=== PATIENT | female | born 1955 | race American Indian/Alaskan Native ===

== ENCOUNTER 2018-07-29 07:24 | Outpatient (CLI) | payer BC | END 2018-07-29 07:25 | disposition home or self-care (01) | LOC: CARDIO 07:24 ==

== ENCOUNTER 2018-09-10 18:59 | Emergency (ER) | payer BC ==
[2018-09-10 19:00] VITALS: BMI 29.9
[2018-09-10 19:13] VITALS: TEMP 98.9
--- NOTE | 2018-09-10 19:31 | ED PDOC ---
Arrival/HPI - General Chief Complaint: ENT Problem Time Seen by Provider: 09/10/18 19:15 Historian: Patient - History of Present Illness Narrative History of Present Illness (Text): 09/10/18 19:30 62 yo F w/ PMH of HTN and DM c/o swelling to the L side of her cheek by her L ear. States that she also has a cracked tooth to the L upper 3rd molar, she saw her pmd today and was advised to go to the ER for possible dental abscess. Denies any fever, chills, headache, URI, sore throat, ear pain, rash, N/V. Has no other complaints. PMD [place] Past Medical History - Infectious Disease Hx of Infectious Diseases: None - Reproductive Menopause: Yes - Cardiac Hx Hypertension: Yes Hx Peripheral Vascular Disease: Yes - Neurological Hx Paralysis: No - Hematological/Oncological Hx Blood Transfusions: No Hx Blood Transfusion Reaction: No - Musculoskeletal/Rheumatological Hx Musculoskeletal Disorders: Yes - Psychiatric Hx Emotional Abuse: No Hx Physical Abuse: No Hx Substance Use: No - Past Surgical History Past Surgical History: Non-Contributing - Surgical History Hx Cardiac Catheterization: Yes - Anesthesia Hx Anesthesia Reactions: Yes ("VERY COLD WHEN WAKING UP") Hx Malignant Hyperthermia: No - Suicidal Assessment Feels Threatened In Home Enviroment: No Family/Social History Family/Social History: No Known Family HX Smoking Status: Unknown If Ever Smoked Hx Alcohol Use: No Hx Substance Use: No Allergies/Home Meds Allergies/Adverse Reactions: Allergies seasonal Allergy (Uncoded 09/10/18 19:14) CONGESTION Home Medications: Home Meds Medication Instructions Recorded Confirmed Insulin Lispro Mix 75/25 [HumaLOG 22 units SC ACB 12/30/13 07/29/18 Mix 75/25] Insulin Lispro Mix 75/25 [HumaLOG 26 units SC ACD 12/30/13 07/29/18 Mix 75/25] NIFEdipine ER [Procardia XL] 40 mg PO QAM 12/30/13 07/29/18 Quinapril [Accupril] 40 mg PO QAM 12/30/13 07/29/18 Biotin 1,000 mcg PO DAILY 07/24/15 07/29/18 Pantoprazole Sodium [Protonix] 40 mg PO QAM 07/24/15 07/29/18 Empagliflozin [Jardiance] 25 mg PO DAILY 07/29/18 07/29/18 Fluticasone Propionate 1 gm TP BID PRN 07/29/18 07/29/18 Review of Systems - Review of Systems Constitutional: absent: Fatigue, Fevers Respiratory: absent: SOB, Cough Cardiovascular: absent: Chest Pain, Palpitations Gastrointestinal: absent: Nausea, Vomiting Skin: absent: Rash, Skin Lesions Neurological: absent: Headache, Dizziness Physical Exam Vital Signs Temp Pulse Resp BP Pulse Ox 09/10/18 19:08 98.9 F 58 L 18 163/117 H 98 Temperature: Afebrile Blood Pressure: Hypertensive Pulse: Regular Respiratory Rate: Normal Appearance: Positive for: Well-Appearing, Non-Toxic, Comfortable Pain Distress: None Mental Status: Positive for: Alert and Oriented X 3 - Systems Exam Head: Present: Atraumatic, Normocephalic, Swelling (+swelling of the L parotid gland with tenderness to palpation) Pupils: Present: PERRL Extroacular Muscles: Present: EOMI Conjunctiva: Present: Normal Ears: Present: Normal, NORMAL TM Mouth: Present: Moist Mucous Membranes, Other (+cracked tooth to the L upper 3rd molar without gingival edema or erythema) Pharnyx: Present: Normal. No: ERYTHEMA, EXUDATE Neck: Present: Normal Range of Motion. No: Meningeal Signs, Lymphadenopathy Respiratory/Chest: Present: Clear to Auscultation, Good Air Exchange. No: Respiratory Distress, Accessory Muscle Use Cardiovascular: Present: Regular Rate and Rhythm, Normal S1, S2. No: Murmurs Back: Present: Normal Inspection Upper Extremity: Present: Normal Inspection. No: Cyanosis, Edema Lower Extremity: Present: Normal Inspection. No: Edema Neurological: Present: GCS=15, CN II-XII Intact, Speech Normal Skin: Present: Warm, Dry, Normal Color. No: Rashes Psychiatric: Present: Alert, Oriented x 3, Normal Insight, Normal Concentration Medical Decision Making ED Course and Treatment: 09/10/18 19:28 Plan : - Labs - IV - CT mandible w/ IV contrast 09/10/18 21:01 Patient's bp is still noted to be elevated at 194/76, states that she took both of her bp medications this AM. Vasotec 1.25 mg IV ordered and tylenol 975 mg PO ordered. 09/10/18 22:20 CT Mandible, reviewed by radiologist: IMPRESSION: 1. There is enlargement of both parotid glands with heterogeneous appearance of both glands. Enlargement is greater on the left than the right. However, there is also more heterogeneous low density on the right and on the left. There is also enlargement of both the submandibular glands, left more so than right. Both submandibular glands also demonstrate prominence of the salivary ducts without obstructing stones seen. The findings have broad differential considerations including sarcoidosis as well as infectious, inflammatory, autoimmune and benign and malignant neoplastic processes. Given the multi-gland and bilateral involvement, systemic processes such as sarcoidosis, Sjogren's disease or other autoimmune are favored over focal infectious processes. Please correlate clinically and if indicated this can be further evaluated with biopsy. 2. There are some top normal lymph nodes diffusely bilaterally although no victoria lymphadenopathy is identified. 3. Mild prominence of the lacrimal glands bilaterally. This is nonspecific but more often seen in sarcoidosis and Sjogren's disease. Electronically signed on Sep 10, 2018 10:15:36 PM EDT by: Bertram Crow M.D., [facility]UB[facility] Certified By [facility] Fellowship Trained MRI and CT Specialist 09/10/18 22:15 On reevaluation, patient remains awake alert and oriented 3 in no acute distress. She is speaking in full sentences, no drooling. Clindamycin 300 mg IV given. Based on history, exam and diagnostic results plan will be for outpatient follow up. Advised to follow up with primary care physician or ENT referral in 1-2 days without fail. Advised to take medication as prescribed, to use lemon drops to increase saliva. Return to the emergency room at any time for any new or worsening symptoms. Patient states she fully agrees with and understands discharge instructions. States that she agrees with the plan and disposition. Verbalized and repeated discharge instructions and plan. I have given the patient opportunity to ask any additional questions. - RAD Interpretation Radiology Orders: 09/10/18 19:26 CT MANDIBLE W/IV CONTRAST [CT] Stat - PA / SENIOR BIOINFORMATICS SCIENTIST / Resident Statement MD/DO has reviewed & agrees with the documentation as recorded. Disposition/Present on Arrival - Present on Arrival Any Indicators Present on Arrival: No History of DVT/PE: No History of Uncontrolled Diabetes: No Urinary Catheter: No History of Decub. Ulcer: No History Surgical Site Infection Following: None - Disposition Have Diagnosis and Disposition been Completed?: Yes Diagnosis: Sialadenitis Disposition: HOME/ ROUTINE Disposition Time: 22:30 Patient Plan: Discharge Condition: STABLE Discharge Instructions (ExitCare): Parotitis, Salivary Gland Infection Additional Instructions: Thank you for letting us take care of you today. You were treated for sialadenitis. The emergency medical care you received today was directed at your acute symptoms. If you were prescribed any medication, please fill it and take as directed. It may take several days for your symptoms to resolve. Return to the Emergency Department if your symptoms worsen, do not improve, or if you have any other problems. Please contact your doctor in 2 days for re-evaluation and follow up / or call one of the physicians/clinics you have been referred to that are listed on the Patient Visit Information form that is included in your discharge packet. Bring any paperwork you were given at discharge with you along with any medications you are taking to your follow up visit. Our treatment cannot replace ongoing medical care by a primary care provider (PCP) outside of the emergency department. Thank you for allowing the [facility] team to be part of your care today. If you had an X-Ray or CT scan: A Radiologist will review the ED reading if any change in treatment is needed we will contact you. Follow up CT results with pmd or ENT referral without fail. CT mandible : IMPRESSION: 1. There is enlargement of both parotid glands with heterogeneous appearance of both glands. Enlargement is greater on the left than the right. However, there is also more heterogeneous low density on the right and on the left. There is also enlargement of both the submandibular glands, left more so than right. Both submandibular glands also demonstrate prominence of the salivary ducts without obstructing stones seen. The findings have broad differential considerations including sarcoidosis as well as infectious, inflammatory, autoimmune and benign and malignant neoplastic processes. Given the multi-gland and bilateral involv ement, systemic processes such as sarcoidosis, Sjogren's disease or other autoimmune are favored over focal infectious processes. Please correlate clinically and if indicated this can be further evaluated with biopsy. 2. There are some top normal lymph nodes diffusely bilaterally although no victoria lymphadenopathy is identified. 3. Mild prominence of the lacrimal glands bilaterally. This is nonspecific but more often seen in sarcoidosis and Sjogren's disease. Prescriptions: Clindamycin [Cleocin] 300 mg PO TID #30 cap Referrals: Bret Kaminski DO [Staff Provider] - Follow up with primary FAMILY PROVIDER,NO [Non-Staff] - Follow up with primary Forms: [employer] (Panamanian), WORK NOTE
[2018-09-10 20:20] LABS: BASO # 0.01 K/mm3 (0.0-2.0); BASO % 0.2 % (0.0-3.0); EOS # 0.2 (0.0-0.7); HEMOGLOBIN 13.9 g/dL (12.0-16.0); LYMPH # 2.4 (1.2-3.4); LYMPH % 42.3 % (22.0-35.0); MEAN CELL VOLUME 92.8 fl (80.0-105.0); MEAN CORPUSCULAR HEMOGLOBIN 29.3 pg (25.0-35.0); MEAN CORPUSCULAR HGB CONC 31.6 g/dl (31.0-37.0); MEAN PLATELET VOLUME 11.5 fl (7.0-11.0); MONO # 0.4 (0.1-0.6); RBC 4.74 10^6/uL (3.5-6.1); RED CELL DISTRIBUTION WIDTH 15.9 % (11.5-14.5); WHITE BLOOD COUNT 5.7 10^3/uL (4.5-11.0)
[2018-09-10 20:35] LABS: ALB/GLOB RATIO 1.2 (1.1-1.8); ALBUMIN 4.4 g/dL (3.0-4.8); ALT/SGPT 14 U/L (7-56); AST/SGOT 31 U/L (14-36); BLOOD UREA NITROGEN 12 mg/dL (7-21); CALCIUM 9.7 mg/dL (8.4-10.5); GFR NON-AFRICAN AMERICAN > 60
[2018-09-10] MEDS ORDERED: Iohexol 350 MG/100 ML VIAL ONE (20:48)
[2018-09-10] MEDS ORDERED: EnalaprilAT 1.25 mg/ml Inj IVP STA (20:56)
[2018-09-10 21:09] LABS: AMYLASE 754 U/L (35-125)
[2018-09-10] MEDS ORDERED: Clindamycin in D5W 300 MG/50 ML BAG IV STA (22:20)
[2018-09-11 00:03] VITALS: BP 149/84; PULSE 60; RESP 18; O2SAT 100
--- NOTE | 2018-09-11 08:44 | CT ---
Date of service: 09/10/2018 PROCEDURE: CT MAXILLOFACIAL BONES WITH CONTRAST HISTORY: L facial/jaw swelling, r/o parotid gland infection COMPARISON: None. TECHNIQUE: Contiguous axial CT images of the maxillofacial bones were obtained following administration of IV contrast. Coronal and sagittal reformats were generated. Intravenous contrast Dose: 100 cc Omnipaque 350. Radiation dose: Total exam DLP = 778.72 mGy-cm. This CT exam was performed using one or more of the following dose reduction techniques: Automated exposure control, adjustment of the mA and/or kV according to patient size, and/or use of iterative reconstruction technique. FINDINGS: LEFT PAROTID GLAND: Markedly edematous left parotid gland, both superficial and deep lobes. Increased vascularity noted as well. LEFT SUBMANDIBULAR GLAND: Enlarged and necrotic left submandibular gland. RIGHT SALIVARY GLAND: Heterogeneous hypervascular right parotid gland involving both superficial and deep lobes. RIGHT SUBMANDIBULAR GLAND: Enlarged heterogeneous partially necrotic right submandibular gland. NASAL BONES: Unremarkable. ORBITS: Unremarkable. PARANASAL SINUSES/ MASTOIDS: Clear. MAXILLA: Unremarkable. MANDIBLE/ TEMPOROMANDIBULAR JOINTS: Unremarkable. SKULL BASE: Unremarkable. TEMPORAL BONES: Middle ears and mastoid grossly unremarkable. OTHER FINDINGS: Lacrimal gland prominence noted bilaterally. Findings are consistent with autoimmune etiology for the findings described above. IMPRESSION: Enlargement and contrast-enhancing characteristics of bilateral submandibular glands and parotid glands left greater than right suggests an autoimmune etiology. Enlargement of the lacrimal glands bilaterally. Overall, most likely consideration be an autoimmune etiology such as Sjogren's syndrome. Concordant results (preliminary interpretation) provided by [facility]. Procedure Completed: 21:12. Preliminary Report: Interpreted and electronically signed: 22:15. Final Interpretation: 08:38.
== END 2018-09-10 23:19 | disposition home or self-care (01) ==
LOC: ED 18:59
DX: K11.20 Sialoadenitis, unspecified (principal); I10 Essential (primary) hypertension
CPT/HCPCS: 70488; 80053; 82150; 83735; 85025; 96365; 96375; 99284; Q9967

== ENCOUNTER → 2018-11-18 | Day surgery (SDC) | payer BC | LOC: ENDO 07:38 | DX: R10.9 Unspecified abdominal pain (principal) ==